=== PATIENT | female | born 1980 | race Caucasian/White ===

== ENCOUNTER 2021-02-08 07:28 | Inpatient (IN) | payer MEDICAID ==
[~2021-02-08 07:28] MED LIST: Lactated Ringers 1,000 ML IV SCH; Lidocaine 1% 4 ML ONE; Lidocaine 1%/Sod Bicarbonate in NS 8.4% 1 ML Syringe IDERM PRN; Midazolam 1 MG/ML 2 ML SDV ONE; Propofol 200 MG/20 ML SDV ONE; Rocuronium 50 MG/5 ML Vial ONE; Sodium Chloride 0.9% 10 ML Syringe FLUSH PRN; fentaNYL 100 MCG/2 ML SDV ONE
--- NOTE | 2021-02-08 07:28 | PCM.PREANE ---
Preanesthetic Assessment - Procedure Proposed Procedure: vaginal hysterectomy lap assisted with bilateral salpingectomy probable total abdominal hysterectomy - Anesthesia/Transfusion/Family Hx Anesthesia History: No Prior Anesthesia Family History of Anesthesia Reaction: No Transfusion History: Prior Transfusion Without Reaction Intubation History: Unknown - Review of Systems General: No Symptoms Pulmonary: No Symptoms Cardiovascular: No Symptoms Gastrointestinal: No Symptoms Neurological: Numbness (pt reports relating to anemia in bilateral hands ), Tingling Other: Reports: Easy Bleeding (from fibroids ), Depression, Anxiety - Physical Assessment NPO Status Date: 02/07/21 NPO Status Time: 21:00 Height: 1.68 m ASA Class: 2 Mental Status: Alert & Oriented x3 Airway Class: Mallampati = 1 Dentition: Reports: Normal Dentition Thyro-Mental Finger Breadths: 3 Mouth Opening Finger Breadths: 5 ROM/Head Extension: Full Lungs: Clear to Auscultation, Normal Respiratory Effort Cardiovascular: Regular Rate, Regular Rhythm - Allergies Allergies/Adverse Reactions: Allergies Allergy/AdvReac Type Severity Reaction Status Date / Time codeine Allergy Hyperactivi Verified 02/07/21 14:38 ty shellfish derived Allergy Itching Verified 02/07/21 14:38 - Blood Blood Available: No - Anesthesia Plan Pre-Op Medication Ordered: Other (scopalamine patch ) - Acknowledgements Anesthesia Type Planned: General Anesthesia Pt an Appropriate Candidate for the Planned Anesthesia: Yes Alternatives and Risks of Anesthesia Discussed w Pt/Guardian: Yes Pt/Guardian Understands and Agrees with Anesthesia Plan: Yes PreAnesthesia Questionnaire - Past Health History Medical/Surgical History: Denies Medical/Surgical History HEENT History: Reports: Impaired Vision, Other (See Below) Other HEENT History: wears glasses Cardiovascular History: Reports: None Respiratory History: Reports: None Gastrointestinal History: Reports: None Genitourinary History: Reports: Other (See Below) CREW DIRECTOR History: Reports: Other (See Below) Other OB/BYN History: menorrhagia, pelvic pain, laparoscopy with lysis of adhesions, breast lumpectomy Musculoskeletal History: Reports: None Neurological History: Reports: Other (See Below) Other Neuro History: scoliosis Psychiatric History: Reports: Depression Endocrine/Metabolic History: Reports: Hypothyroidism Hematologic History: Reports: Anemia Immunologic History: Reports: None Oncologic (Cancer) History: Reports: None Dermatologic History: Reports: Other (See Below) Other Dermatologic History: acne - Infectious Disease History Infectious Disease History: Reports: None - Past Surgical History Head Surgeries/Procedures: Reports: None HEENT Surgical History: Reports: Oral Surgery, Tonsillectomy Cardiovascular Surgical History: Reports: None Respiratory Surgical History: Reports: None GI Surgical History: Reports: None Female Surgical History: Reports: Section, D&C Endocrine Surgical History: Reports: None Neurological Surgical History: Reports: None Musculoskeletal Surgical History: Reports: None Dermatological Surgical History: Reports: None - SUBSTANCE USE Tobacco Use Status *Q: Former Tobacco User Recreational Drug Use History: No - HOME MEDS Home Medications: Home Meds ClonazePAM [KlonoPIN] 0.5 mg PO BID PRN 02/07/21 [History] Lactobacillus Acidophilus [Probiotic] 1 cap PO DAILY 02/07/21 [History] Multivitamin [Daily-Wes] 1 tab PO DAILY 02/07/21 [History] Naproxen [Naprosyn] 500 mg PO BID 02/07/21 [History] - CURRENT (IN HOUSE) MEDS Current Meds: Current Medications Lactated Ringer's (Ringers, Lactated) 1,000 mls @ 125 mls/hr IV ASDIRECTED ANGELES Stop: 02/08/21 23:00 Lidocaine/Sodium Bicarbonate (Lidocaine 1%/Sod Bicarbonate In Ns 8.4% 1 Ml Syringe) 0.25 ml IDERM ONETIME PRN PRN Reason: Prior to IV Start Stop: 02/08/21 18:00 Sodium Chloride (Sodium Chloride 0.9% 10 Ml Syringe) 10 ml FLUSH ASDIRECTED PRN PRN Reason: Keep Vein Open Stop: 02/08/21 18:00
[2021-02-08] MEDS ORDERED: Lidocaine 1% with EPINEPHrine 1:100,000 10 ML MDV ONE (07:30)
[2021-02-08] MEDS ORDERED: Sodium Chloride 0.9% 50 ML SDV ONE (07:30)
[2021-02-08] MEDS ORDERED: Bupivacaine 0.5% 30 ML SDV ONE (07:30)
[2021-02-08] MEDS ORDERED: Ondansetron 4 MG/2 ML SDV IVPUSH PRN (07:33)
[2021-02-08] MEDS ORDERED: fentaNYL 100 MCG/2 ML SDV IVPUSH PRN (07:33)
[2021-02-08] MEDS ORDERED: Scopolamine 1.5 MG Transdermal Patch TRDERM ONE (07:33)
[2021-02-08] MEDS ORDERED: ceFAZolin 1 GM Vial ONE (08:13)
[2021-02-08] MEDS ORDERED: Lactated Ringers 1,000 ML ONE ×2 (08:14→09:02)
[2021-02-08] MEDS ORDERED: Ketorolac 30 MG/ML SDV ONE (08:18)
[2021-02-08] MEDS ORDERED: Dexamethasone 4 MG/ML 5 ML MDV ONE (08:18)
[2021-02-08] MEDS ORDERED: Ondansetron 4 MG/2 ML SDV ONE (08:18)
[2021-02-08] MEDS ORDERED: HYDROmorphone 0.5 MG/0.5 ML Syringe ONE ×5 (08:29→10:42)
[2021-02-08] MEDS ORDERED: Ketamine 500 mg/10 ML MDV ONE (08:46)
[2021-02-08] MEDS ORDERED: Rocuronium 50 MG/5 ML Vial ONE (09:05)
--- NOTE | 2021-02-08 10:54 | PCM.POSTAN ---
POST ANESTHESIA ASSESSMENT - MENTAL STATUS Mental Status: Confused - VITAL SIGNS Vital Signs: Last Vital Signs Temp 36.7 C 02/08/21 07:30 Pulse 66 02/08/21 07:30 Resp 14 02/08/21 07:30 BP 105/73 02/08/21 07:30 Pulse Ox 99 02/08/21 07:30 - RESPIRATORY Respiratory Status: Respiratory Rate WNL, Airway Patent, O2 Saturation Stable, Supplemental Oxygen - CARDIOVASCULAR CV Status: Pulse Rate WNL, Blood Pressure Stable - GASTROINTESTINAL GI Status: No Symptoms - PAIN Pain Score: 8 (RN treating ) - POST OP HYDRATION Hydration Status: Adequate & Stable
[2021-02-08] MEDS: HYDROmorphone 0.5 MG/0.5 ML Syringe IVPUSH PRN ×2 (10:55→11:17)
--- NOTE | 2021-02-08 12:01 | PCM.OPNOTE ---
- General Post-Op/Procedure Note Date of Surgery/Procedure: 02/08/21 Operative Procedure(s): laparoscopy, abdominal supracervical hysterectomy, lysis of adhesions Findings: significant endometriosis, enlarged fibroid uterus, adhesions to bilateral ovaries, significant bowel adhesions to left ovary, bilateral ovarian endometriomas Pre Op Diagnosis: menorrhagia, anemia, fibroid uterus. Post-Op Diagnosis: Same Anesthesia Technique: General ET Tube Primary Surgeon: Lizbeth Martinez Machinery Mover: Susy Hughes Reason Machinery Mover Was Necessary: adhesions, retraction, surgical assistance, complex procedure. Pathology: uterus, right fallopian tube. Fluid Replacement, Intraop: 2,700 Output, Urine Amount: 200 EBL in mLs: 1,000 Condition: Good Free Text/Narrative:: Intake & Output 02/07/21 02/08/21 02/08/21 22:59 06:59 14:59 Output Total 200 Balance -200 Under GA in the dorsal lithotomy position with arms tucked the patient was prepped and drapped in the usual sterile fashion. Gertrude uterine manipulator placed in uterus. Lawson placed. A local anesthetic solution was used to infiltrate in the subumbilical area. A 5 mm subumbilical incision was made through the skin with a #11 blade. The Veress needle was inserted into the peritoneal cavity and insufflation revealed an opening pressure of < 6 mmHg. The peritoneal cavity was insufflated with CO2 gas to a maximum pressure of 15 mmHg. The Veress needle was removed and a 10 mm trocar was introduced without difficulty into the peritoneal cavity through this site . The 5 mm laparoscope was then introduced and visualize confirmation of peritoneal entry was made. The uterus was visualized and was more significantly enlarged than was evident on exam under anesthesia. A 5 mm left sided lateral incision was then made through the skin with direct translumination and 5 mm trocar placed. Manipulator utilized to inspect uterus which had very limited mobility and was significantly enlarged. Decision made to open. A Pfannensteil incision was made through the patients previous incision. The incision was carried down to the fascia with sharp dissection. The fascia was incised transversely and dissected off the rectus muscle using blunt and sharp dissection. Electrocautery was used for hemostasis. The peritoneum was opened taking care not to injure any underlying structures. Laparotomy revealed no obvious abnormalities other than adhesions and significant enlargement of uterus as previously discussed. A pillo retractor was placed and the bowel was packed away into the upper abdomen to improve visualization and protect adjacent tissue. Attempt made to elevate uterus through pillo after grasping with a single toothed tenaculum. Minimal mobility. Pillo retractor removed. Pelvis inspected and significant posterior adhesions of bowel to posterior lower uterine segment and left ovary. After some elevation of the uterus. The round ligament on the right was grasped and divided using cautery and then suture ligated. The peritoneum was opened lateral to the infundibulopelvic ligaments. Gradually ligasure utilized to travel two additional bites on the right taking care to clamp for back bleeding. Attention turned to left side. Ligasure utilized to transect round, utero- ovarian and cornual portion of tube. Visualization of remainder of tube and ovary difficulty. Gradually with careful sharp and cautery bladder flap was created. Additional bites using heany clamp were clamped, cut and suture ligated. Attention turned to adhesions to right ovary. Small endometrioma on ovary ruptured and suctioned. Adhesions taken down and the uterine vessles with clamped, cut and suture ligated on the right. Attention turned to left and as much bowel as could be was dissected of the posterior uterus. Uterine vessels were clamped, cut and suture ligated. Uterus was amputated from cervix. Pelvis inspected, significant adhesions to left ovary and posterior cervix. Decision made to stop at supracervical hysterectomy given the degree of adhesions to bowel. Right fallopian tube was identified and removed with ligasure. Top of cervix was cauterized with bovie and oversewn with 0 vicryl. Pelvis irrigated. Floseal utilized to render the left ovary hemostatic at site of some mild oozing along bed of lysis of adhesions. The bowel pack was then removed and the omentum and small bowel were assessed for injury and hemostasis. Fascia closed with 0-vicryl. Skin closed with 4-0 monocril (trocar sites as well) patient awakened and taken to pacu in good condition.
[2021-02-08] MEDS ORDERED: HYDROmorphone 1 MG/ML Syringe IVPUSH PRN (13:29)
[2021-02-08] MEDS: Acetaminophen/oxyCODONE 325-5 MG Tab PO PRN ×3 (15:30→21:48)
[2021-02-08] MEDS: Ibuprofen 600 MG Tab PO PRN (16:21)
[2021-02-09] MEDS: Ibuprofen 600 MG Tab PO PRN ×2 (01:04→06:45)
[2021-02-09] MEDS: Acetaminophen/oxyCODONE 325-5 MG Tab PO PRN ×2 (02:35→07:34)
--- NOTE | 2021-02-09 07:02 | PCM.DCSUM1 ---
Discharge Summary - Hospital Course Diagnosis: Stroke: No - Discharge Data Discharge Date: 02/09/21 Discharge Disposition: Home, Self-Care 01 Condition: Good - Referral to Home Health Primary Care Physician: PCP None - Patient Summary/Data Operative Procedure(s) Performed: laparoscopy, abdominal supracervical hysterectomy, lysis of adhesions - Patient Instructions Diet: Usual Diet as Tolerated Activity: No Lifting Over 10 Pounds, No Strenuous Activities Activity, Other: pelvic rest Driving: May Drive Today Showering/Bathing: May Shower Wound/Incision Care: Keep Operative Site/Wound Site Clean and Dry Notify Provider of: Fever, Increased Pain, Swelling and Redness, Drainage, Nausea and/or Vomiting - Discharge Plan *PRESCRIPTION DRUG MONITORING PROGRAM REVIEWED*: No *COPY OF PRESCRIPTION DRUG MONITORING REPORT IN PATIENT ERIC: No Home Medications: Home Meds ClonazePAM [KlonoPIN] 0.5 mg PO BID PRN 02/07/21 [History] Lactobacillus Acidophilus [Probiotic] 1 cap PO DAILY 02/07/21 [History] Multivitamin [Daily-Wes] 1 tab PO DAILY 02/07/21 [History] Naproxen [Naprosyn] 500 mg PO BID 02/07/21 [History] Referrals: Lizbeth Martinez MD [Physician] - (2 weeks, 6 weeks) - Discharge Summary/Plan Comment DC Time >30 min.: No - General Info Date of Service: 02/09/21 Functional Status: Reports: Pain Controlled - Review of Systems General: Reports: No Symptoms HEENT: Reports: No Symptoms Pulmonary: Reports: No Symptoms Cardiovascular: Reports: No Symptoms Gastrointestinal: Reports: No Symptoms Genitourinary: Reports: No Symptoms Musculoskeletal: Reports: No Symptoms Skin: Reports: No Symptoms Neurological: Reports: No Symptoms Psychiatric: Reports: No Symptoms - Patient Data Vitals - Most Recent: Last Vital Signs Temp 36.9 C 02/09/21 02:45 Pulse 84 02/09/21 02:45 Resp 16 02/09/21 02:45 BP 114/66 02/09/21 02:45 Pulse Ox 100 02/09/21 02:45 Weight - Most Recent: 64.864 kg I&O - Last 24 hours: Intake & Output 02/08/21 02/09/21 02/09/21 22:59 06:59 14:59 Intake Total 900 Output Total 187% 450 Balance -959 -450 Lab Results - Last 24 hrs: Laboratory Results - last 24 hr 02/08/21 02/08/21 02/08/21 Range/Units 07:20 07:40 07:40 WBC 3.52 L (3.98-10.04) K/mm3 RBC 4.69 (3.98-5.22) M/mm3 Hgb 11.7 (11.2-15.7) gm/dl Hct 37.7 (34.1-44.9) % MCV 80.4 (79.4-94.8) fl MCH 24.9 L (25.6-32.2) pg MCHC 31.0 L (32.2-35.5) g/dl RDW Std Deviation 75.2 H (36.4-46.3) fL Plt Count 248 (182-369) K/mm3 MPV 9.1 L (9.4-12.3) fl Neut % (Auto) 60.3 (34.0-71.1) % Lymph % (Auto) 23.3 (19.3-51.7) % [place] % (Auto) 9.9 (4.7-12.5) % Eos % (Auto) 4.5 (0.7-5.8) Baso % (Auto) 2.0 H (0.1-1.2) % Neut # (Auto) 2.12 (1.56-6.13) K/mm3 Lymph # (Auto) 0.82 L (1.18-3.74) K/mm3 [place] # (Auto) 0.35 (0.24-0.36) K/mm3 Eos # (Auto) 0.16 (0.04-0.36) K/mm3 Baso # (Auto) 0.07 (0.01-0.08) K/mm3 Sodium 140 (136-145) mEq/L Potassium 3.7 (3.5-5.1) mEq/L Chloride 105 (98-107) mEq/L Carbon Dioxide 28 (21-32) mEq/L Anion Gap 10.7 (5-15) BUN 7 (7-18) mg/dL Creatinine 0.8 (0.55-1.02) mg/dL Est Cr Clr Drug Dosing 87.51 mL/min Estimated GFR (MDRD) > 60 (>60) mL/min BUN/Creatinine Ratio 8.8 L (14-18) Glucose 89 (70-99) mg/dL Calcium 8.0 L (8.5-10.1) mg/dL Urine HCG, Qual Negative (NEGATIVE) Blood Type Gel Antibody Screen 02/08/21 02/08/21 02/09/21 Range/Units 07:40 16:05 05:31 WBC 11.21 H 5.56 (3.98-10.04) K/mm3 RBC 4.57 3.80 L (3.98-5.22) M/mm3 Hgb 11.5 9.4 L D (11.2-15.7) gm/dl Hct 36.8 31.2 L (34.1-44.9) % MCV 80.5 82.1 (79.4-94.8) fl MCH 25.2 L 24.7 L (25.6-32.2) pg MCHC 31.3 L 30.1 L (32.2-35.5) g/dl RDW Std Deviation 73.5 H 74.2 H (36.4-46.3) fL Plt Count 241 211 (182-369) K/mm3 MPV 9.6 9.5 (9.4-12.3) fl Neut % (Auto) 64.6 (34.0-71.1) % Lymph % (Auto) 22.1 (19.3-51.7) % Hendry % (Auto) 12.2 (4.7-12.5) % Eos % (Auto) 0.5 L (0.7-5.8) Baso % (Auto) 0.4 (0.1-1.2) % Neut # (Auto) 3.59 (1.56-6.13) K/mm3 Lymph # (Auto) 1.23 (1.18-3.74) K/mm3 [place]ry # (Auto) 0.68 H (0.24-0.36) K/mm3 Eos # (Auto) 0.03 L (0.04-0.36) K/mm3 Baso # (Auto) 0.02 (0.01-0.08) K/mm3 Sodium (136-145) mEq/L Potassium (3.5-5.1) mEq/L Chloride (98-107) mEq/L Carbon Dioxide (21-32) mEq/L Anion Gap (5-15) BUN (7-18) mg/dL Creatinine (0.55-1.02) mg/dL Est Cr Clr Drug Dosing mL/min Estimated GFR (MDRD) (>60) mL/min BUN/Creatinine Ratio (14-18) Glucose (70-99) mg/dL Calcium (8.5-10.1) mg/dL Urine HCG, Qual (NEGATIVE) Blood Type A POSITIVE Gel Antibody Screen Negative Med Orders - Current: Current Medications Hydromorphone HCl (Hydromorphone 1 Mg/Ml Syringe) 1 mg IVPUSH Q2H PRN PRN Reason: Pain (severe 7-10) Last Admin: 02/08/21 13:42 Dose: 1 mg Documented by: Ibuprofen (Ibuprofen 600 Mg Tab) 600 mg PO Q6H PRN PRN Reason: Pain (mild 1-3) Last Admin: 02/09/21 06:45 Dose: 600 mg Documented by: Oxycodone/Acetaminophen (Acetaminophen/Oxycodone 325-5 Mg Tab) 1 tab PO Q4H PRN PRN Reason: Pain (moderate 4-6) Last Admin: 02/08/21 17:40 Dose: 1 tab Documented by: Oxycodone/Acetaminophen (Acetaminophen/Oxycodone 325-5 Mg Tab) 2 tab PO Q4H PRN PRN Reason: Pain (severe 7-10) Last Admin: 02/09/21 02:35 Dose: 2 tab Documented by: Discontinued Medications Bupivacaine HCl (Bupivacaine 0.5% 30 Ml Sdv) Confirm Administered Dose 30 ml .ROUTE .STK-MED ONE Stop: 02/08/21 07:31 Last Admin: 02/08/21 08:48 Dose: 10 ml Documented by: Cefazolin Sodium (Cefazolin 1 Gm Vial) Confirm Administered Dose 2 gm .ROUTE .STK-MED ONE Stop: 02/08/21 08:14 Dexamethasone (Dexamethasone 4 Mg/Ml 5 Ml Mdv) Confirm Administered Dose 20 mg .ROUTE .STK-MED ONE Stop: 02/08/21 08:19 Diazepam (Diazepam 10 Mg/2 Ml Syringe) 2 mg IVPUSH ONETIME ONE Stop: 02/08/21 11:33 Last Admin: 02/08/21 12:04 Dose: 2 mg Documented by: Fentanyl (Fentanyl 100 Mcg/2 Ml Sdv) Confirm Administered Dose 100 mcg .ROUTE .STK-MED ONE Stop: 02/08/21 07:23 Fentanyl (Fentanyl 100 Mcg/2 Ml Sdv) 50 mcg IVPUSH Q5M PRN PRN Reason: Pain Stop: 02/08/21 12:00 Last Admin: 02/08/21 11:06 Dose: 50 mcg Documented by: Glycopyrrolate (Glycopyrrolate 0.2 Mg/Ml 2 Ml Syringe) Confirm Administered Dose 0.4 mg .ROUTE .STK-MED ONE Stop: 02/08/21 08:44 Hydromorphone HCl (Hydromorphone 0.5 Mg/0.5 Ml Syringe) 0.5 mg IVPUSH Q10M PRN PRN Reason: Pain (severe 7-10) Stop: 02/08/21 12:00 Last Admin: 02/08/21 11:17 Dose: 0.5 mg Documented by: Hydromorphone HCl (Hydromorphone 0.5 Mg/0.5 Ml Syringe) Confirm Administered Dose 0.5 mg .ROUTE .STK-MED ONE Stop: 02/08/21 08:30 Hydromorphone HCl (Hydromorphone 0.5 Mg/0.5 Ml Syringe) Confirm Administered Dose 0.5 mg .ROUTE .STK-MED ONE Stop: 02/08/21 08:43 Hydromorphone HCl (Hydromorphone 0.5 Mg/0.5 Ml Syringe) Confirm Administered Dose 0.5 mg .ROUTE .STK-MED ONE Stop: 02/08/21 09:03 Hydromorphone HCl (Hydromorphone 0.5 Mg/0.5 Ml Syringe) Confirm Administered Dose 0.5 mg .ROUTE .STK-MED ONE Stop: 02/08/21 09:59 Hydromorphone HCl (Hydromorphone 0.5 Mg/0.5 Ml Syringe) Confirm Administered Dose 0.5 mg .ROUTE .STK-MED ONE Stop: 02/08/21 10:43 Lactated Ringer's (Ringers, Lactated) 1,000 mls @ 125 mls/hr IV ASDIRECTED ANGELES Stop: 02/08/21 23:00 Last Admin: 02/08/21 07:30 Dose: 125 mls/hr Documented by: Lidocaine HCl (Xylocaine-Mpf 1%) Confirm Administered Dose 4 mls @ as directed .ROUTE .ST-MED ONE Stop: 02/08/21 07:25 Lactated Ringer's (Ringers, Lactated) Confirm Administered Dose 1,000 mls @ as directed .ROUTE .STK-MED ONE Stop: 02/08/21 08:15 Lactated Ringer's (Ringers, Lactated) Confirm Administered Dose 1,000 mls @ as directed .ROUTE .ST-MED ONE Stop: 02/08/21 09:03 Ketamine HCl (Ketamine 500 Mg/10 Ml Mdv) Confirm Administered Dose 500 mg .ROUTE .ST-MED ONE Stop: 02/08/21 08:47 Ketorolac Tromethamine (Ketorolac 30 Mg/Ml Sdv) Confirm Administered Dose 30 mg .ROUTE .STK-MED ONE Stop: 02/08/21 08:19 Lidocaine/Epinephrine (Lidocaine 1% With Epinephrine 1:100,000 10 Ml Mdv) Confirm Administered Dose 10 ml .ROUTE .ST-MED ONE Stop: 02/08/21 07:31 Lidocaine/Sodium Bicarbonate (Lidocaine 1%/Sod Bicarbonate In Ns 8.4% 1 Ml Syringe) 0.25 ml IDERM ONETIME PRN PRN Reason: Prior to IV Start Stop: 02/08/21 18:00 Last Admin: 02/08/21 07:30 Dose: 0.25 ml Documented by: Midazolam HCl (Midazolam 1 Mg/Ml 2 Ml Sdv) Confirm Administered Dose 2 mg .ROUTE .ST-MED ONE Stop: 02/08/21 07:23 Neostigmine Methylsulfate (Neostigmine Methylsulfate 5 Mg/5 Ml Syringe) Confirm Administered Dose 5 mg .ROUTE .ST-MED ONE Stop: 02/08/21 08:43 Ondansetron HCl (Ondansetron 4 Mg/2 Ml Sdv) 4 mg IVPUSH ONETIME PRN PRN Reason: Nausea/Vomiting Stop: 02/08/21 12:00 Last Admin: 02/08/21 10:54 Dose: 4 mg Documented by: Ondansetron HCl (Ondansetron 4 Mg/2 Ml Sdv) Confirm Administered Dose 4 mg .ROUTE .STK-MED ONE Stop: 02/08/21 08:19 Propofol (Propofol 200 Mg/20 Ml Sdv) Confirm Administered Dose 400 mg .ROUTE .STK-MED ONE Stop: 02/08/21 07:23 Rocuronium [place] (Rocuronium 50 Mg/5 Ml Vial) Confirm Administered Dose 50 mg .ROUTE .STK-MED ONE Stop: 02/08/21 07:24 Rocuronium [place] (Rocuronium 50 Mg/5 Ml Vial) Confirm Administered Dose 50 mg .ROUTE .STK-MED ONE Stop: 02/08/21 09:06 Scopolamine (Scopolamine 1.5 Mg Transdermal Patch) 1.5 mg TRDERM ONETIME ONE Stop: 02/08/21 07:34 Last Admin: 02/08/21 07:50 Dose: 1.5 mg Documented by: Sodium Chloride (Sodium Chloride 0.9% 10 Ml Syringe) 10 ml FLUSH ASDIRECTED PRN PRN Reason: Keep Vein Open Stop: 02/08/21 18:00 Sodium Chloride (Sodium Chloride 0.9% 50 Ml Sdv) Confirm Administered Dose 50 ml .ROUTE .STK-MED ONE Stop: 02/08/21 07:31 - Exam General: Reports: Alert, Oriented HEENT: Reports: Pupils Equal, Pupils Reactive, EOMI, Mucous Membr. Moist/[place] Neck: Reports: Supple Lungs: Reports: Clear to Auscultation, Normal Respiratory Effort Cardiovascular: Reports: Regular Rate, Regular Rhythm GI/Abdominal Exam: Normal Bowel Sounds, Soft, Non-Tender, No Organomegaly, No Distention (Female) Exam: Normal External Exam Rectal (Female) Exam: Normal Exam, Normal Rectal Tone Back Exam: Reports: Normal Inspection, Full Range of Motion Extremities: Normal Inspection, Normal Range of Motion, Non-Tender, No Pedal Edema, Normal Capillary Refill Skin: Reports: Warm, Dry, Intact Wound/Incisions: Reports: Healing Well Neurological: Reports: No New Focal Deficit Psy/Mental Status: Reports: Alert, Normal Affect, Normal Mood
[2021-02-09 10:44] VITALS: BP 122/77; PULSE 71
== END 2021-02-09 11:05 | disposition home or self-care (01) | DRG 743 ==
LOC: JD.SDS 07:28 → JD.OB 11:26
PROVIDERS: ADMIT Obstetrics & Gynecology; ATTEND Obstetrics & Gynecology
PROC: 0UT94ZL Resection of Uterus, Supracervical, Percutaneous Endoscopic Approach (ICD-10-PCS; principal; 2021-02-08)
PROC: 0UN74ZZ Release Bilateral Fallopian Tubes, Percutaneous Endoscopic Approach (ICD-10-PCS; 2021-02-08)
DX: D25.9 Leiomyoma of uterus, unspecified (principal); N73.6 Female pelvic peritoneal adhesions (postinfective); Z88.8 Allergy status to other drugs, medicaments and biological substances; F32.9 Major depressive disorder, single episode, unspecified; E03.9 Hypothyroidism, unspecified; D50.0 Iron deficiency anemia secondary to blood loss (chronic); N80.1 Endometriosis of ovary; N99.4 Postprocedural pelvic peritoneal adhesions; N92.0 Excessive and frequent menstruation with regular cycle
CPT/HCPCS: 00840; 36415; 80048; 81025; 85025; 85027; 86850; 86900; 86901; A9270-GY; J0690; J1100; J1170; J1885; J2250; J2405; J2704; J2710; J3010; J3360; J3490; J7120

== ENCOUNTER 2021-10-12 14:18 | Inpatient (IN) | payer MEDICAID ==
[2021-10-12] MEDS ORDERED: Sodium Chloride 0.9% 10 ML Syringe FLUSH PRN (14:31)
[2021-10-12] MEDS ORDERED: Sodium Chloride 0.9% 1,000 ML IV STA (14:32)
[2021-10-12] MEDS ORDERED: Ondansetron 4 MG/2 ML SDV IVPUSH ONE (14:32)
[2021-10-12] MEDS ORDERED: HYDROmorphone 0.5 MG/0.5 ML Syringe IVPUSH ONE ×2 (14:32→17:35)
[2021-10-12] MEDS ORDERED: LORazepam 2 MG/ML SDV ONE (15:03)
[2021-10-12] MEDS ORDERED: LORazepam 2 MG/ML SDV IVPUSH ONE (15:18)
[2021-10-12] MEDS ORDERED: Diatrizoate Meglumine/Diatrizoate Sodium 37% 120 ML Bottle NGTUBE ONE (15:34)
[2021-10-12] MEDS ORDERED: oxyCODONE 5 MG Tab PO PRN (15:35)
[2021-10-12] MEDS ORDERED: Morphine 2 MG/ML SYRINGE IVPUSH PRN (15:35)
[2021-10-12] MEDS ORDERED: LORazepam 2 MG/ML SDV IVPUSH PRN (15:38)
[2021-10-12] MEDS ORDERED: Acetaminophen 325 MG Tab PO SCH (15:45)
[2021-10-12 15:55] LABS: CORONAVIRUS COVID-19 NAA NEGATIVE (NEGATIVE)
[2021-10-12] MEDS: Lactated Ringers 1,000 ML IV SCH (17:26)
[2021-10-12] MEDS: Ondansetron 4 MG/2 ML SDV IVPUSH PRN (18:05)
[2021-10-12] MEDS ORDERED: HYDROmorphone 0.5 MG/0.5 ML Syringe IVPUSH PRN (19:17)
[2021-10-12] MEDS: HYDROmorphone 1 MG/ML Syringe IVPUSH PRN (20:19)
[2021-10-13] MEDS: HYDROmorphone 1 MG/ML Syringe IVPUSH PRN ×3 (03:49→21:44)
[2021-10-13] MEDS: Lactated Ringers 1,000 ML IV SCH ×2 (04:27→15:48)
[2021-10-13] MEDS: methylPREDNISolone Sodium Succinate 40 MG/1 ML SDV IVPUSH SCH (09:43)
[2021-10-13] MEDS: Ondansetron 4 MG/2 ML SDV IVPUSH PRN (21:44)
[2021-10-14] MEDS: Lactated Ringers 1,000 ML IV SCH (01:49)
[2021-10-14] MEDS: Ondansetron 4 MG/2 ML SDV IVPUSH PRN (08:27)
[2021-10-14] MEDS: HYDROmorphone 1 MG/ML Syringe IVPUSH PRN (08:31)
[2021-10-14] MEDS: methylPREDNISolone Sodium Succinate 40 MG/1 ML SDV IVPUSH SCH (08:34)
[2021-10-14] MEDS: Ketorolac 30 MG/ML SDV IVPUSH SCH ×3 (09:37→20:26)
[2021-10-14] MEDS: Pantoprazole 40 MG Vial IVPUSH SCH ×2 (09:37→20:26)
[2021-10-14] MEDS: D5 1/2 NS w/ 20 mEq/L KCl 1,000 ML IV SCH ×2 (09:50→20:26)
[2021-10-15] MEDS: Ketorolac 30 MG/ML SDV IVPUSH SCH (04:07)
[2021-10-15] MEDS: D5 1/2 NS w/ 20 mEq/L KCl 1,000 ML IV SCH ×2 (06:34→16:31)
[2021-10-15] MEDS: Pantoprazole 40 MG Vial IVPUSH SCH ×2 (09:52→21:40)
[2021-10-15] MEDS: methylPREDNISolone Sodium Succinate 40 MG/1 ML SDV IVPUSH SCH (09:52)
[2021-10-16] MEDS: D5 1/2 NS w/ 20 mEq/L KCl 1,000 ML IV SCH ×3 (02:40→22:58)
[2021-10-16] MEDS: Pantoprazole 40 MG Vial IVPUSH SCH ×2 (09:08→20:32)
[2021-10-16] MEDS: methylPREDNISolone Sodium Succinate 40 MG/1 ML SDV IVPUSH SCH (09:08)
[2021-10-17] MEDS ORDERED: predniSONE 20 MG Tab PO SCH (09:30)
[2021-10-17] MEDS ORDERED: Pantoprazole 40 MG Tab.CR PO SCH ×2 (09:36→16:00)
[2021-10-17 11:44] VITALS: BP 136/98; PULSE 72
[2021-10-17] MEDS: Pantoprazole 40 MG Vial IVPUSH SCH (11:59)
== END 2021-10-17 15:08 | disposition home or self-care (01) | DRG 387 ==
LOC: JD.ED 14:18 → JD.MS 15:35 → OBSVTOIN 10-13 11:58
PROVIDERS: ADMIT Surgery; ATTEND Surgery
DX: K56.609 Unspecified intestinal obstruction, unspecified as to partial versus complete obstruction (principal); H54.7 Unspecified visual loss; K50.00 Crohn's disease of small intestine without complications; F32.A Depression, unspecified; D64.9 Anemia, unspecified; Z88.5 Allergy status to narcotic agent; Z91.013 Allergy to seafood; Z20.822 Contact with and (suspected) exposure to COVID-19; E03.9 Hypothyroidism, unspecified; Z97.3 Presence of spectacles and contact lenses; Z90.89 Acquired absence of other organs; Z90.710 Acquired absence of both cervix and uterus; Z98.890 Other specified postprocedural states
CPT/HCPCS: 0241U; 36415; 43752; 74018; 80048; 83630; 83993; 85025; 85652; 86140; 96374; 96375; 99285; 96376; A9270-GY; C9113; G0378; J1170; J1885; J2060; J2270; J2405; J2920; J3480; J7030; J7120; J7512; Q9963

== ENCOUNTER 2022-02-15 10:00 | Inpatient (IN) | payer OTHER, MEDICAID ==
[2022-02-15] MEDS: Lactated Ringers 1,000 ML IV SCH ×3 (09:50→17:19)
[~2022-02-15 10:00] MED LIST changes: +Dexamethasone 4 MG/ML 5 ML MDV ONE; -Lactated Ringers 1,000 ML IV SCH; +Scopolamine 1.5 MG Transdermal Patch TRDERM ONE; +Sodium Chloride 0.9% 10 ML Syringe FLUSH SCH; -fentaNYL 100 MCG/2 ML SDV ONE; +fentaNYL 250 MCG/5 ML SDV ONE
[2022-02-15] MEDS ORDERED: Lidocaine 1% 2 ML ONE (10:11)
[2022-02-15] MEDS ORDERED: Piperacillin/Tazobactam 4.5 GM AdvVial ONE (10:15)
[2022-02-15] MEDS ORDERED: Sodium Chloride 0.9% 100 ML ONE (10:16)
[2022-02-15] MEDS: Bupivacaine 0.5%/EPINEPHrine 1:200,000 50 ML MDV ONE ×2 (10:30→14:11)
[2022-02-15] MEDS ORDERED: Lactated Ringers 1,000 ML ONE ×2 (10:33→11:51)
[2022-02-15] MEDS ORDERED: HYDROmorphone 0.5 MG/0.5 ML Syringe ONE ×2 (10:34→10:49)
[2022-02-15] MEDS ORDERED: fentaNYL 100 MCG/2 ML SDV ONE ×5 (10:50→12:50)
[2022-02-15] MEDS ORDERED: Rocuronium 50 MG/5 ML Vial ONE (11:54)
[2022-02-15] MEDS ORDERED: Scopolamine 1.5 MG Transdermal Patch TRDERM ONE (12:15)
[2022-02-15] MEDS ORDERED: Ondansetron 4 MG/2 ML SDV ONE (12:18)
[2022-02-15] MEDS ORDERED: Neostigmine Methylsulfate 10 MG/10 ML MDV ONE (12:29)
[2022-02-15] MEDS ORDERED: diphenhydrAMINE 50 MG/ML SDV IVPUSH PRN ×2 (13:03→14:00)
[2022-02-15] MEDS ORDERED: Ondansetron 4 MG/2 ML SDV IVPUSH PRN ×2 (13:03→16:53)
[2022-02-15] MEDS ORDERED: Midazolam 1 MG/ML 2 ML SDV IVPUSH PRN ×2 (13:03→14:00)
[2022-02-15] MEDS: fentaNYL 100 MCG/2 ML SDV IVPUSH PRN ×2 (13:10→14:05)
[2022-02-15] MEDS: HYDROmorphone 0.5 MG/0.5 ML Syringe IVPUSH PRN ×2 (14:00→17:24)
[2022-02-15] MEDS: oxyCODONE 5 MG Tab PO PRN ×2 (15:40→22:31)
[2022-02-15] MEDS: Acetaminophen 325 MG Tab PO SCH ×2 (15:40→22:13)
[2022-02-15] MEDS: Heparin Sodium 5,000 Units/ML Vial SUBCUT SCH (17:18)
[2022-02-16] MEDS: HYDROmorphone 0.5 MG/0.5 ML Syringe IVPUSH PRN ×3 (00:27→19:29)
[2022-02-16] MEDS: Heparin Sodium 5,000 Units/ML Vial SUBCUT SCH ×4 (00:28→23:29)
[2022-02-16] MEDS: Lactated Ringers 1,000 ML IV SCH (03:20)
[2022-02-16 06:27] LABS: ESTIMATED GFR > 60 mL/min (>60)
[2022-02-16] MEDS: Acetaminophen 325 MG Tab PO SCH ×3 (06:34→23:27)
[2022-02-16] MEDS: oxyCODONE 5 MG Tab PO PRN ×2 (07:51→20:45)
[2022-02-16] MEDS ORDERED: D5 1/2 NS w/ 20 mEq/L KCl 1,000 ML IV SCH (08:00)
[2022-02-16] MEDS ORDERED: Promethazine 12.5 MG in Sodium Chloride 0.9% 50 ML IV PRN (13:16)
[2022-02-17] MEDS: Acetaminophen 325 MG Tab PO SCH ×2 (05:55→13:21)
[2022-02-17] MEDS: oxyCODONE 5 MG Tab PO PRN (09:43)
[2022-02-17] MEDS: Heparin Sodium 5,000 Units/ML Vial SUBCUT SCH ×2 (09:43→16:41)
[2022-02-17 16:11] VITALS: BP 134/94; PULSE 89
== END 2022-02-17 16:41 | disposition home or self-care (01) | DRG 331 ==
LOC: JD.SDS 10:00 → JD.ICU 13:33
PROVIDERS: ADMIT Surgery; ATTEND Surgery
PROC: 0DBH0ZZ Excision of Cecum, Open Approach (ICD-10-PCS; principal; 2022-02-15)
PROC: 0CB1XZX Excision of Lower Lip, External Approach, Diagnostic (ICD-10-PCS; principal; 2022-02-15)
PROC: 0DJD4ZZ Inspection of Lower Intestinal Tract, Percutaneous Endoscopic Approach (ICD-10-PCS; principal; 2022-02-15)
DX: N80.5 Endometriosis of intestine (principal); E03.9 Hypothyroidism, unspecified; F32.A Depression, unspecified; D64.9 Anemia, unspecified; F41.9 Anxiety disorder, unspecified; K13.0 Diseases of lips; M19.90 Unspecified osteoarthritis, unspecified site; Z98.891 History of uterine scar from previous surgery; Z90.710 Acquired absence of both cervix and uterus; Z88.5 Allergy status to narcotic agent
CPT/HCPCS: 00790; 36415; 80048; 85025; A9270-GY; J1100; J1170; J1200; J1644; J2250; J2405; J2543; J2550; J2704; J2710; J3010; J3480; J3490; J7120

== ENCOUNTER 2022-02-25 14:29 | Emergency (ER) | payer OTHER, MEDICAID ==
[2022-02-25 15:54] VITALS: BP 118/78; PULSE 78
== END 2022-02-25 15:54 | disposition home or self-care (01) ==
LOC: JD.ED 14:29
DX: T81.31XA Disruption of external operation (surgical) wound, not elsewhere classified, initial encounter (principal); Z90.710 Acquired absence of both cervix and uterus; Z88.5 Allergy status to narcotic agent; Z91.013 Allergy to seafood; Z79.899 Other long term (current) drug therapy
CPT/HCPCS: 99283

== ENCOUNTER 2022-08-29 09:37 | Emergency (ER) | payer OTHER, MEDICAID ==
[2022-08-29] MEDS ORDERED: Metoclopramide 10 MG/2 ML SDV IVPUSH ONE (10:24)
[2022-08-29] MEDS ORDERED: Sodium Chloride 0.9% 10 ML Syringe FLUSH PRN (10:24)
[2022-08-29] MEDS ORDERED: Ketorolac 30 MG/ML SDV IVPUSH ONE (10:25)
[2022-08-29] MEDS ORDERED: diphenhydrAMINE 50 MG/ML SDV IVPUSH ONE (10:25)
[2022-08-29] MEDS ORDERED: Sodium Chloride 0.9% 1,000 ML IV SCH (10:30)
[2022-08-29 11:42] LABS: CORONAVIRUS COVID-19 NAA POSITIVE (NEGATIVE)
[2022-08-29 13:19] VITALS: BP 135/89; PULSE 90
== END 2022-08-29 13:20 | disposition home or self-care (01) ==
LOC: JD.ED 09:37
DX: U07.1 COVID-19 (principal); E03.9 Hypothyroidism, unspecified; Z91.013 Allergy to seafood; Z88.5 Allergy status to narcotic agent
CPT/HCPCS: 0241U; 36415; 80053; 81001; 85025; 96361; 96374; 96375; 99283; J1200; J1885; J2765; J3490; J7030

== ENCOUNTER 2023-07-30 08:11 | Day surgery (SDC) | payer OTHER, MEDICAID ==
[~2023-07-30 08:11] MED LIST changes: -Dexamethasone 4 MG/ML 5 ML MDV ONE; +Lactated Ringers 1,000 ML IV SCH; -Lidocaine 1% 4 ML ONE; -Lidocaine 1%/Sod Bicarbonate in NS 8.4% 1 ML Syringe IDERM PRN; -Rocuronium 50 MG/5 ML Vial ONE; -Scopolamine 1.5 MG Transdermal Patch TRDERM ONE; +fentaNYL 100 MCG/2 ML SDV ONE; -fentaNYL 250 MCG/5 ML SDV ONE
[2023-07-30] MEDS ORDERED: Dexamethasone 4 MG/ML 5 ML MDV ONE (08:25)
[2023-07-30] MEDS ORDERED: Metoclopramide 10 MG/2 ML SDV ONE (08:25)
[2023-07-30] MEDS ORDERED: EPINEPHrine 1 MG/ML SDV ONE (08:31)
[2023-07-30] MEDS ORDERED: Lidocaine 1% 30 ML SDV ONE (08:31)
[2023-07-30] MEDS ORDERED: Ondansetron 4 MG/2 ML SDV IVPUSH PRN (09:33)
[2023-07-30] MEDS ORDERED: HYDROmorphone 0.5 MG/0.5 ML Syringe IVPUSH PRN (09:33)
[2023-07-30] MEDS ORDERED: fentaNYL 100 MCG/2 ML SDV IVPUSH PRN (09:33)
[2023-07-30 11:37] VITALS: BP 110/70; PULSE 78
== END 2023-07-30 11:30 | disposition home or self-care (01) ==
LOC: JD.SDS 08:11
PROVIDERS: ATTEND Specialist
DX: L72.0 Epidermal cyst (principal); L72.2 Steatocystoma multiplex; F41.9 Anxiety disorder, unspecified; F32.A Depression, unspecified; E03.9 Hypothyroidism, unspecified; K58.9 Irritable bowel syndrome, unspecified; Z88.5 Allergy status to narcotic agent; Z91.013 Allergy to seafood; Z79.899 Other long term (current) drug therapy; Z87.891 Personal history of nicotine dependence
CPT/HCPCS: 11400; J0171; J1100; J2250; J2405; J2704; J2765; J3010; J7120; 00400; J3490

== ENCOUNTER 2023-10-03 10:59 | Day surgery (SDC) | payer OTHER, MEDICAID ==
[~2023-10-03 10:59] MED LIST changes: -Midazolam 1 MG/ML 2 ML SDV ONE; -Propofol 200 MG/20 ML SDV ONE; -fentaNYL 100 MCG/2 ML SDV ONE
[2023-10-03] MEDS ORDERED: Propofol 200 MG/20 ML SDV ONE (12:05)
[2023-10-03] MEDS ORDERED: Lidocaine 1% 4 ML ONE (12:05)
[2023-10-03] MEDS ORDERED: Lidocaine 1% PF 2 ML SDV ONE (12:05)
[2023-10-03] MEDS ORDERED: Midazolam 1 MG/ML 2 ML SDV ONE (12:05)
[2023-10-03] MEDS ORDERED: fentaNYL 100 MCG/2 ML SDV ONE (12:23)
[2023-10-03 14:30] VITALS: BP 108/70; PULSE 74
== END 2023-10-03 14:20 | disposition home or self-care (01) ==
LOC: JD.SDS 10:59
PROVIDERS: ATTEND Specialist
DX: K31.7 Polyp of stomach and duodenum (principal); F41.9 Anxiety disorder, unspecified; F32.A Depression, unspecified; E03.9 Hypothyroidism, unspecified; Z79.899 Other long term (current) drug therapy; Z88.5 Allergy status to narcotic agent; Z91.013 Allergy to seafood
CPT/HCPCS: 43239; 43251; J2250; J2704; J3010; J7120; 00731; J3490

== ENCOUNTER 2023-10-25 22:54 | Emergency (ER) | payer OTHER, MEDICAID ==
[2023-10-25] MEDS: Metoclopramide 10 MG/2 ML SDV IVPUSH ONE (23:42)
[2023-10-25] MEDS: HYDROmorphone 1 MG/ML Syringe IVPUSH ONE (23:43)
[2023-10-25] MEDS: diphenhydrAMINE 50 MG/ML SDV IVPUSH ONE (23:43)
[2023-10-25] MEDS: Sodium Chloride 0.9% 1,000 ML IV SCH (23:44)
[2023-10-25 23:48] LABS: BASOPHILS ABSOLUTE AUTO 0.1 K/mm3 (0.0-0.2); BASOPHILS PERCENT AUTO 0.9 % (0.0-1.0); EOSINOPHILS ABSOLUTE AUTO 0.3 K/mm3 (0.0-0.4); EOSINOPHILS PERCENT AUTO 3.8 % (0.0-6.0); HEMATOCRIT 46.5 % (37.0-47.0); HEMOGLOBIN 15.5 gm/dl (12.0-16.0); IMMATURE GRAN ABSOLUTE AUTO 0.02 K/mm3 (0.00-0.05); IMMATURE GRAN PERCENT AUTO 0.3 % (0.0-0.4); LYMPHOCYTES ABSOLUTE AUTO 2.4 K/mm3 (1.0-4.8); LYMPHOCYTES PERCENT AUTO 32.2 % (24.0-44.0); MEAN CORPUSCULAR HEMOGLOBIN 28.9 pg (28.0-32.0); MEAN CORPUSCULAR HGB CONC 33.3 g/dl (32.0-36.0); MEAN CORPUSCULAR VOLUME 86.6 fl (83.0-99.0); MEAN PLATELET VOLUME 9.3 fl (9.4-12.3); MONOCYTES ABSOLUTE AUTO 0.8 K/mm3 (0.0-0.8); MONOCYTES PERCENT AUTO 10.6 % (0.0-8.0); NEUTROPHILS PERCENT AUTO 52.2 % (41.0-71.0); PLATELET COUNT,PLT 279 K/mm3 (150-400); RED BLOOD CELL COUNT 5.37 M/mm3 (4.10-5.30); WHITE BLOOD CELL COUNT,WBC 7.58 K/mm3 (3.9-11.3)
[2023-10-25 23:58] LABS: INR 0.93
[2023-10-26] LABS: PTT,PARTIAL THROMBOPLSTIN TIME 28.6 SECONDS (21.7-31.4)
[2023-10-26 00:01] LABS: ALANINE AMINOTRANSFERASE,ALT 34 U/L (14-59); ALKALINE PHOSPHATASE 47 U/L (46-116); ANION GAP 12.7 (5-15); ASPARTATE AMNIOTRANSFERASE,AST 24 U/L (15-37); BILIRUBIN TOTAL 0.5 mg/dL (0.2-1.0); BLOOD UREA NITROGEN,BUN 6 mg/dL (7-18); BUN/CREATININE RATIO 7.5 (14-18); C-REACTIVE PROTEIN <0.2 mg/dL (<1.0); CALCIUM 8.9 mg/dL (8.5-10.1); CARBON DIOXIDE,CO2 31 mEq/L (21-32); CHLORIDE,CL 102 mEq/L (98-107); CREATININE 0.8 mg/dL (0.55-1.02); EST CRCL DRUG DOSING (CG) 84.88 mL/min; ESTIMATED GFR 94 mL/min (>60); GLUCOSE RANDOM 100 mg/dL (70-99); LIPASE 48 U/L (16-77); MAGNESIUM 1.6 mg/dL (1.8-2.4); POTASSIUM,K 3.7 mEq/L (3.5-5.1); PROTEIN TOTAL,TP 7.9 g/dl (6.4-8.2); SODIUM,NA 142 mEq/L (136-145)
[2023-10-26] MEDS: Sodium Chloride 0.9% 10 ML Syringe FLUSH ONE (00:59)
[2023-10-26] MEDS: Iopamidol 612 MG/ML 100 ML Bottle IVPUSH ONE (00:59)
[2023-10-26] MEDS: HYDROmorphone 0.5 MG/0.5 ML Syringe IVPUSH ONE (02:05)
[2023-10-26] MEDS: Dicyclomine 10 MG Cap PO ONE (02:16)
[2023-10-26 02:19] LABS: APPEARANCE,URINE CLEAR (Clear); BILIRUBIN,URINE NEGATIVE (Negative); COLOR,URINE YELLOW (Yellow); GLUCOSE,URINE NEGATIVE (Negative); KETONES,URINE NEGATIVE (Negative); LEUKOCYTE ESTERASE,URINE NEGATIVE (Negative); NITRITE,URINE NEGATIVE (Negative); OCCULT BLOOD,URINE NEGATIVE (Negative); PH,URINE 6.5 (5.0-8.0); PROTEIN,URINE NEGATIVE (Negative); UROBILINOGEN,URINE 0.2 (0.2-1.0)
[2023-10-26 02:49] VITALS: BP 108/82; PULSE 80
[2023-10-26 02:49] LABS: BACTERIA,URINE RARE /hpf (FEW); MUCUS,URINE NOT SEEN /hpf (FEW); RBC,URINE 0-5 /hpf (0-5); SQUAMOUS EPITHELIAL CELLS,UR 0-5 /hpf (0-5); WBC,URINE 0-5 /hpf (0-5)
== END 2023-10-26 02:44 | disposition home or self-care (01) ==
LOC: JD.ED 22:54
DX: N83.201 Unspecified ovarian cyst, right side (principal); K59.01 Slow transit constipation; E03.9 Hypothyroidism, unspecified; Z79.899 Other long term (current) drug therapy; Z88.5 Allergy status to narcotic agent; Z91.013 Allergy to seafood
CPT/HCPCS: 36415; 74177; 80053; 81001; 83605; 83690; 83735; 85025; 85610; 85730; 86140; 96361; 96374; 96375; 96376; 99284; A9270; J1170; J1200; J2765; J3490; J7030; Q9967

== ENCOUNTER 2024-02-11 09:08 | Day surgery (SDC) | payer MEDICAID, OTHER ==
[~2024-02-11 09:08] MED LIST changes: -Lactated Ringers 1,000 ML IV SCH
[2024-02-11] MEDS ORDERED: HYDROmorphone 0.5 MG/0.5 ML Syringe ONE (10:28)
[2024-02-11] MEDS ORDERED: fentaNYL 100 MCG/2 ML SDV ONE (10:29)
[2024-02-11] MEDS ORDERED: Propofol 200 MG/20 ML SDV ONE (10:29)
[2024-02-11] MEDS ORDERED: Midazolam 1 MG/ML 2 ML SDV ONE (10:29)
[2024-02-11] MEDS: Lactated Ringers 1,000 ML IV SCH (10:30)
[2024-02-11] MEDS ORDERED: Lidocaine 1% 5 ML VIAL ONE (10:32)
[2024-02-11] MEDS ORDERED: Rocuronium 50 MG/5 ML Vial ONE (10:32)
[2024-02-11] MEDS ORDERED: Ketamine 200 MG/20 ML MDV ONE (10:34)
[2024-02-11] MEDS: Scopalamine 1mg/3day Transdermal Patch TRDERM ONE (10:53)
[2024-02-11] MEDS ORDERED: Scopalamine 1mg/3day Transdermal Patch TRDERM SCH (11:00)
[2024-02-11] MEDS ORDERED: ceFAZolin 2 GM Vial ONE (11:10)
[2024-02-11] MEDS: EPINEPHrine 1 MG/ML SDV ONE (11:17)
[2024-02-11] MEDS: Bupivacaine 0.5% 30 ML SDV ONE (11:17)
[2024-02-11] MEDS ORDERED: Sugammadex Sodium 200 MG/2 ML VIAL IV ONE (12:12)
[2024-02-11] MEDS ORDERED: Dexamethasone 4 MG/ML 5 ML MDV ONE (12:12)
[2024-02-11] MEDS ORDERED: Ondansetron 4 MG/2 ML SDV ONE (12:12)
[2024-02-11] MEDS ORDERED: Ketorolac 30 MG/ML SDV ONE (12:12)
[2024-02-11] MEDS: HYDROmorphone 0.5 MG/0.5 ML Syringe IVPUSH PRN (12:50)
[2024-02-11] MEDS ORDERED: oxyCODONE 5 MG Tab PO PRN (13:00)
[2024-02-11] MEDS: fentaNYL 100 MCG/2 ML SDV IVPUSH PRN (13:15)
[2024-02-11 15:37] VITALS: BP 115/70; PULSE 92
== END 2024-02-11 15:42 | disposition home or self-care (01) ==
LOC: JD.SDS 09:08
PROVIDERS: ATTEND Surgery
DX: N80.122 Deep endometriosis of left ovary (principal); E03.9 Hypothyroidism, unspecified; F32.A Depression, unspecified; F41.9 Anxiety disorder, unspecified; Z79.899 Other long term (current) drug therapy; Z88.5 Allergy status to narcotic agent; Z91.013 Allergy to seafood; Z87.891 Personal history of nicotine dependence
CPT/HCPCS: 00840; A9270-GY; J0171; J0665; J0690; J1100; J1170; J1885; J2250; J2405; J2704; J3010; J3490; J7120

== ENCOUNTER 2024-07-31 14:55 | Emergency (ER) | payer MEDICAID, OTHER ==
[2024-07-31 15:54] LABS: APPEARANCE,URINE CLEAR (Clear); BILIRUBIN,URINE NEGATIVE (Negative); COLOR,URINE YELLOW (Yellow); GLUCOSE,URINE NEGATIVE (Negative); KETONES,URINE TRACE (Negative); LEUKOCYTE ESTERASE,URINE NEGATIVE (Negative); NITRITE,URINE NEGATIVE (Negative); OCCULT BLOOD,URINE NEGATIVE (Negative); PH,URINE 6.5 (5.0-8.0); PROTEIN,URINE NEGATIVE (Negative); UROBILINOGEN,URINE 0.2 (0.2-1.0)
[2024-07-31 16:32] LABS: BACTERIA,URINE FEW /hpf (FEW); MUCUS,URINE FEW /hpf (FEW); RBC,URINE 0-5 /hpf (0-5); SQUAMOUS EPITHELIAL CELLS,UR 0-5 /hpf (0-5); WBC,URINE 0-5 /hpf (0-5)
[2024-07-31 17:53] LABS: BASOPHILS PERCENT AUTO 0.4 % (0.0-1.0); HEMOGLOBIN 15.7 gm/dl (12.0-16.0); IMMATURE GRAN ABSOLUTE AUTO 0.02 K/mm3 (0.00-0.05); IMMATURE GRAN PERCENT AUTO 0.2 % (0.0-0.4); LYMPHOCYTES ABSOLUTE AUTO 1.6 K/mm3 (1.0-4.8); LYMPHOCYTES PERCENT AUTO 18.7 % (24.0-44.0); MEAN CORPUSCULAR HEMOGLOBIN 28.2 pg (28.0-32.0); MEAN CORPUSCULAR HGB CONC 34.1 g/dl (32.0-36.0); MEAN CORPUSCULAR VOLUME 82.7 fl (83.0-99.0); MEAN PLATELET VOLUME 9.3 fl (9.4-12.3); MONOCYTES ABSOLUTE AUTO 0.9 K/mm3 (0.0-0.8); MONOCYTES PERCENT AUTO 10.5 % (0.0-8.0); NEUTROPHILS ABSOLUTE AUTO 5.8 K/mm3 (1.8-7.7); NEUTROPHILS PERCENT AUTO 70.2 % (41.0-71.0); PLATELET COUNT,PLT 278 K/mm3 (150-400); RED BLOOD CELL COUNT 5.56 M/mm3 (4.10-5.30); WHITE BLOOD CELL COUNT,WBC 8.31 K/mm3 (3.9-11.3)
[2024-07-31 17:59] LABS: APPEARANCE,URINE CLEAR (Clear); BILIRUBIN,URINE NEGATIVE (Negative); COLOR,URINE YELLOW (Yellow); GLUCOSE,URINE NEGATIVE (Negative); KETONES,URINE TRACE (Negative); LEUKOCYTE ESTERASE,URINE NEGATIVE (Negative); NITRITE,URINE NEGATIVE (Negative); OCCULT BLOOD,URINE NEGATIVE (Negative); PH,URINE 6.5 (5.0-8.0); PROTEIN,URINE NEGATIVE (Negative); UROBILINOGEN,URINE 0.2 (0.2-1.0)
[2024-07-31] MEDS: Iopamidol 612 MG/ML 100 ML Bottle IVPUSH ONE (18:04)
[2024-07-31] MEDS: Sodium Chloride 0.9% 10 ML Syringe FLUSH PRN (18:04)
[2024-07-31 18:22] LABS: A/G RATIO 1.2 (1-2); ALBUMIN 4.5 g/dl (3.4-5.0); ANION GAP 11.4 (5-15); BILIRUBIN TOTAL 0.8 mg/dL (0.2-1.0); CALCIUM 9.5 mg/dL (8.5-10.1); CREATININE 0.7 mg/dL (0.55-1.02); EST CRCL DRUG DOSING (CG) 96.01 mL/min; POTASSIUM,K 3.4 mEq/L (3.5-5.1); PROTEIN TOTAL,TP 8.4 g/dl (6.4-8.2)
[2024-07-31 18:34] LABS: LACTIC ACID 0.6 mmol/L (0.4-2.0)
[2024-07-31] MEDS: Ketorolac 30 MG/ML SDV IVPUSH ONE (19:27)
[2024-07-31] MEDS: Diazepam 5 MG Tab PO ONE (20:17)
[2024-07-31] MEDS: oxyCODONE 5 MG Tab PO ONE (20:18)
[2024-07-31 20:24] VITALS: BP 130/85; PULSE 88
== END 2024-07-31 20:25 | disposition home or self-care (01) ==
LOC: JD.ED 14:55
DX: S39.012A Strain of muscle, fascia and tendon of lower back, initial encounter (principal); S29.012A Strain of muscle and tendon of back wall of thorax, initial encounter; Z86.16 Personal history of COVID-19; Z90.49 Acquired absence of other specified parts of digestive tract; Z90.710 Acquired absence of both cervix and uterus; Z87.891 Personal history of nicotine dependence; Z79.899 Other long term (current) drug therapy; Z91.013 Allergy to seafood; Z88.5 Allergy status to narcotic agent; W01.0XXA Fall on same level from slipping, tripping and stumbling without subsequent striking against object, initial encounter
CPT/HCPCS: 36415; 74177; 80053; 81001; 81003; 81025; 83605; 83690; 84702; 85025; 96374; 99284; A9270; J1885; J3490; Q9967

== ENCOUNTER 2024-11-22 12:28 | Emergency (ER) | payer BC, MEDICAID ==
[2024-11-22 14:18] VITALS: PULSE 77
[2024-11-22] MEDS ORDERED: Ketorolac 60 MG/2 ML SDV IM ONE (14:21)
[2024-11-22] MEDS: Meclizine 25 MG Tab PO ONE (15:16)
[2024-11-22] MEDS: Ondansetron 4 MG Tab.DIS PO ONE (15:16)
[2024-11-22] MEDS: Ketorolac 30 MG/ML SDV IM ONE (15:16)
[2024-11-22 17:45] VITALS: BP 128/98
== END 2024-11-22 13:56 | disposition home or self-care (01) ==
LOC: JD.ED 12:28
DX: B34.9 Viral infection, unspecified (principal); E03.9 Hypothyroidism, unspecified; Z86.16 Personal history of COVID-19; Z90.49 Acquired absence of other specified parts of digestive tract; Z90.710 Acquired absence of both cervix and uterus; Z88.5 Allergy status to narcotic agent; Z91.013 Allergy to seafood; Z79.899 Other long term (current) drug therapy
CPT/HCPCS: 87428; 87651; 96372; 99284; A9270; J1885

== ENCOUNTER 2025-05-11 09:08 | Day surgery (SDC) | payer MEDICAID ==
[2025-05-11 09:25] LABS: APPEARANCE,URINE CLEAR (Clear); GLUCOSE,URINE NEGATIVE (Negative); OCCULT BLOOD,URINE NEGATIVE (Negative)
[2025-05-11] MEDS: Lactated Ringers 1,000 ML IV SCH (09:30)
[2025-05-11] MEDS ORDERED: Ondansetron 4 MG/2 ML SDV IVPUSH PRN (09:32)
[2025-05-11] MEDS: Scopalamine 1mg/3day Transdermal Patch TRDERM ONE (09:40)
[2025-05-11] MEDS ORDERED: Lidocaine 1% 4 ML ONE (09:47)
[2025-05-11] MEDS ORDERED: Dexamethasone 4 MG/ML 5 ML MDV ONE (09:47)
[2025-05-11] MEDS ORDERED: dexmedeTOMIDine HCl 200 MCG/2 ML SDV ONE (09:47)
[2025-05-11] MEDS ORDERED: Lactated Ringers 1,000 ML ONE (09:47)
[2025-05-11] MEDS ORDERED: Ondansetron 4 MG/2 ML SDV ONE (09:47)
[2025-05-11] MEDS ORDERED: Propofol 200 MG/20 ML SDV ONE (09:48)
[2025-05-11] MEDS ORDERED: Ketorolac 30 MG/ML SDV ONE (09:48)
[2025-05-11] MEDS ORDERED: fentaNYL 250 MCG/5 ML SDV ONE (09:48)
[2025-05-11] MEDS ORDERED: Midazolam 1 MG/ML 2 ML SDV ONE (09:48)
[2025-05-11] MEDS: fentaNYL 100 MCG/2 ML SDV IVPUSH PRN (13:49)
[2025-05-11 15:56] VITALS: BP 111/73; PULSE 72
== END 2025-05-11 15:40 | disposition home or self-care (01) ==
LOC: JD.SDS 09:08
PROVIDERS: ATTEND Obstetrics & Gynecology
DX: N80.101 Endometriosis of right ovary, unspecified depth (principal); N80.352 Endometriosis of the left pelvic sidewall, unspecified depth; N73.6 Female pelvic peritoneal adhesions (postinfective); N83.201 Unspecified ovarian cyst, right side; Z88.5 Allergy status to narcotic agent; Z91.013 Allergy to seafood; Z79.899 Other long term (current) drug therapy
CPT/HCPCS: 58661; 58662; 81003; A9270; J0665; J0690; J1100; J1885; J2003; J2250; J2405; J2704; J3010; J7120; 00840; J3490